=== PATIENT | female | born 1980 | race Caucasian/White ===

== ENCOUNTER → 2020-08-20 | Outpatient (CLI) | payer MEDICAID | END | disposition home or self-care (01) | LOC: RAD 10:44 | PROVIDERS: ATTEND Physician Assistant | DX: K30 Functional dyspepsia (principal); R11.2 Nausea with vomiting, unspecified; K52.89 Other specified noninfective gastroenteritis and colitis; R63.4 Abnormal weight loss | CPT/HCPCS: 78264; A9541 ==